=== PATIENT | male | born 1990 | race Two or more races ===

== ENCOUNTER 2025-05-19 12:05 | Day surgery (SDC) | payer MEDICAID, SELFPAY ==
[2025-05-17 08:02] VITALS: BMI 43.8
[2025-05-17 09:50] LABS: Basophils # (Auto) 0.0 Thou/mm3 (0.0-0.2); Basophils % (Auto) 1 % (0-2.5); Eosinophils # (Auto) 0.1 Thou/mm3 (0.0-0.5); Eosinophils % (Auto) 3 % (0-10); Hematocrit 47.4 % (41.0-53.0); Hemoglobin 15.8 g/dL (13.5-16.0); Immature Granulocytes Auto 0.02 Thou/mm3 (0.00-0.00); Lymphocytes # (Auto) 1.5 Thou/mm3 (1.0-4.8); Lymphocytes % (Auto) 30 % (10-50); Mean Corpuscular HGB Conc 33.3 g/dl (31.0-37.0); Mean Corpuscular Hemoglobin 29.4 pg (25.0-35.0); Mean Corpuscular Volume 88 fL (80-100); Monocytes # (Auto) 0.4 Thou/mm3 (0.0-0.8); Monocytes % (Auto) 9 % (0-12); Neutrophils # (Auto) 2.9 Thou/mm3 (1.8-7.7); Neutrophils % (Auto) 57 % (37-80); Nucleated Red Blood Cell # 0.00 Thou/mm3 (0.00-0.00); Nucleated Red Blood Cell % 0 /100 WBC (0); Platelet Count 236 Thou/mm3 (140-440); RDW Standard Deviation 39.4 fL (35.1-43.9); Red Blood Count 5.37 Miln/mm3 (4.50-5.90); White Blood Count 5.0 Thou/mm3 (3.8-10.6)
[2025-05-17 09:56] LABS: Anion Gap 8 (7-16); BUN/Creatinine Ratio 16 Ratio (12-20); Blood Urea Nitrogen 16 mg/dL (9-23); Calcium 9.3 mg/dL (8.3-10.6); Carbon Dioxide 29.0 mMol/L (20.0-31.0); Chloride 106 mMol/L (98-107); Creatinine (Component) 1.0 mg/dL (0.6-1.3); Estimated Creatinine Clearance 160.8 mL/min (>60); Glucose 107 mg/dL (74-106); Osmolality,Calculated 286 (275-295); Potassium 4.0 mMol/L (3.4-5.1); Sodium 143 mMol/L (136-145); eGFR > 60 See Note
--- NOTE | 2025-05-18 12:22 | ESHP_ITS ---
RE: MINH BULLOCK : 1990 DATE OF ADMISSION: 05/18/2025 HISTORY OF PRESENT ILLNESS: A 34 year old gentleman desiring bilateral vasectomy for family planning. He has 4 children. PAST MEDICAL HISTORY: No history of diabetes mellitus, no history of hypertension. PAST SURGICAL HISTORY: He has history of right hand surgery. MEDICATIONS: None. ALLERGIES: NONE. PHYSICAL EXAMINATION: HEENT: Normal. Neck: Supple. Lungs: Clear. Cardiovascular: Heart sounds are normal. Abdomen: Soft. Patient weighs 315 pounds. Is quite obese. : Phallus normal. Testes are down in the scrotum. IMPRESSION: 1. Patient desiring bilateral vasectomy. 2. Morbid obesity. PLAN: Bilateral vasectomy. Planned procedure, risks and complications have been discussed with the patient. Patient has understood them and agreed to proceed. DT: 11:57:09 TT: 12:21:00 Ref: [id number] - TID: [id number]
[2025-05-19 12:31] VITALS: BP 150/77; PULSE 74; RESP 20; TEMP 36.1; O2SAT 100; BMI 43.6
[2025-05-19 13:40] VITALS: BP 149/87; PULSE 74; RESP 18; TEMP 36.8; O2SAT 100
--- NOTE | 2025-05-19 13:40 | SUR.PHASEII ---
pt received from OR in recovery bay 1. pt asleep but responds to voice, breathing unlabored on room air. v/s stable. pt dressing to scrotal area cdi. report received from Dr. Santos and Ranjit Miguel.
[2025-05-19 13:45] VITALS: BP 136/74; PULSE 71; RESP 15; TEMP 36.8; O2SAT 100
[2025-05-19 13:50] VITALS: BP 141/92; PULSE 70; RESP 15; TEMP 36.7; O2SAT 100
[2025-05-19 13:55] VITALS: BP 150/79; PULSE 69; RESP 12; TEMP 36.7; O2SAT 100
[2025-05-19 14:05] VITALS: BP 123/79; PULSE 60; RESP 16; TEMP 36.6; O2SAT 100
--- NOTE | 2025-05-19 14:24 | SUR.PHASEII ---
pt awake and alert, breathing unlabored on room air. v/s stable. pt dressing to scrotal area cdi. pt able to ambulate to wheelchair with steady gait. d/c instructions given with [facility] in room, all questions answered. pt d/c via wheelchair with all belongings.
--- NOTE | 2025-05-19 16:24 | ESOP_ITS ---
RE: MINH BULLOCK : 1990 DATE OF OPERATION: 05/19/2025 PREOPERATIVE DIAGNOSIS: The patient desiring bilateral vasectomy for family planning. POSTOPERATIVE DIAGNOSIS: The patient desiring bilateral vasectomy for family planning. PROCEDURE PERFORMED: Bilateral vasectomy. ANESTHESIA: Local with monitored anesthesia by Dr. Santos. INDICATION: The patient is a 34-year-old gentleman desiring bilateral vasectomy. Planned procedure, risks, and complications have been discussed with the patient; patient understood them and agreed to proceed. DESCRIPTION OF PROCEDURE: After the patient was brought to the operating table, under monitored anesthesia, he was placed in a supine position. Parts were prepped and draped in the usual fashion. Local anesthesia was achieved by injecting Xylocaine anesthetic over the right scrotum. After I made vas subcutaneous, the local anesthetic was injected there. A small transverse incision was then made approximately 0.5 cm long. Dissection was then carried out. A small segment of the vas deferens was isolated from surrounding structures and was selected as two hemostats were placed on this section and segment in between the two hemostats was excised. The ends of the vas deferens were fulgurated and ligated using 3-0 chromic catgut sutures. Complete hemostasis was obtained. Skin wound was closed with interrupted sutures of 3-0 chromic catgut sutures. In the similar fashion, the left-sided vasectomy was done. Local anesthetic was injected at the site of skin. Sterile dressing was then applied. The patient was then transferred to the recovery room in a satisfactory condition, having tolerated the entire procedure well. Sponge count and needle count at the end of the procedure was found to be correct. Estimated blood loss was minimal. DT: 13:47:50 TT: 16:22:00 Ref: [id number] - TID: [id number]
== END 2025-05-19 14:24 | disposition home or self-care (01) ==
PROVIDERS: PCP Family Medicine; Referring Provider Surgery; Visit Provider Surgery
PROC: (CPT 55250; principal; 2025-05-19 13:30)
DX: Z30.2 Encounter for sterilization (principal); E66.01 Morbid (severe) obesity due to excess calories; Z68.41 Body mass index [BMI] 40.0-44.9, adult
CPT/HCPCS: 55250; 36415; 80048; 85025; A4649; J0690; J1200; J2250; J2704; J3010; L8330; A9270